=== PATIENT | male | born 1945 | race Caucasian/White ===

== ENCOUNTER 2016-07-12 09:24 | Inpatient (IN) | payer OTHER, BC ==
[~2016-07-12] VITALS: Ht 175.3 cm; Wt 84.0 kg
[~2016-07-12 09:24] MED LIST: ADVIL,NUPRIN,M200 MG PO; ALEVE220 MG PO; ASPIR 8181 M1 PO; EXTRA STRENGTH500 M1 PO; FERROUS SULFAT325 MG PO
[2016-07-12 10:21] VITALS: BP 165/97
[2016-07-12 17:23] VITALS: BP 172/85
[2016-07-12 19:46] VITALS: BP 187/92
[2016-07-12 23:39] VITALS: BP 139/79
[2016-07-12 23:43] LABS: TROP-I INTERPRETATION NEGATIVE; TROPONIN-I < 0.01 ng/mL (0.0-0.30)
[2016-07-13] VITALS (7 sets, daily range): BP systolic 121–185; BP diastolic 62–84
[2016-07-13 05:53] LABS: HEMATOCRIT 39.5 % (38.0-50.0); MCV 92.5 FL (86-99)
[2016-07-13 06:22] LABS: TROP-I INTERPRETATION NEGATIVE; TROPONIN-I < 0.01 ng/mL (0.0-0.30)
[2016-07-13 06:58] LABS: HDL CHOLESTEROL 35 MG/DL (Desirable>=40); LDL CHOLESTEROL 116 mg/dL (Desirable<100); NON-HDL CHOLESTEROL 134 mg/dL (Desirable<160); TOTAL CHOLESTEROL 169 mg/dL (Desirable<200); TRIGLYCERIDES 91 MG/DL (Normal: <150)
[2016-07-13 10:41] LABS: TROP-I INTERPRETATION NEGATIVE; TROPONIN-I < 0.01 ng/mL (0.0-0.30)
[2016-07-14 04:58] VITALS: BP 161/87
[2016-07-14 06:02] LABS: HEMATOCRIT 36.1 % (38.0-50.0); MCV 92.1 FL (86-99)
[2016-07-14] MEDS ORDERED: BENADRYL25 MG PO (10:09)
[2016-07-14] MEDS ORDERED: TYLENOL REGULA325 MG PO (10:10)
[2016-07-14] MEDS ORDERED: SENNA PLUS TAB1 EACH PO (10:10)
[2016-07-14] MEDS ORDERED: OXYCODONE HCL5 MG PO (10:11)
[2016-07-14] MEDS ORDERED: CARVEDILOL3.125 MG PO (10:11)
[2016-07-14] MEDS ORDERED: XARELTO10 MG PO (10:11)
[2016-07-14] MEDS ORDERED: CELECOXIB200 MG PO (10:11)
== END 2016-07-14 15:29 | DRG 468 ==
LOC: 2SOUTH 09:24 → 3EAST 09:24 → 2SOUTH 09:28 → 3EAST 16:44
PROVIDERS: Internal Medicine; Orthopaedic Surgery
DX: M17.12 Unilateral primary osteoarthritis, left knee (principal); I10 Essential (primary) hypertension; I25.10 Atherosclerotic heart disease of native coronary artery without angina pectoris; Z95.5 Presence of coronary angioplasty implant and graft; Z96.652 Presence of left artificial knee joint
CPT/HCPCS: 80061; 84484; 85014; 85018; 93005; C1713; J0690; J1885; J2250; J2795; J7050; L1820

== ENCOUNTER 2017-02-06 22:09 | Inpatient (IN) | payer OTHER, BC ==
[~2017-02-06] VITALS: Ht 172.7 cm; Wt 71.0 kg
[~2017-02-06 22:09] MED LIST changes: +BENADRYL25 MG PO; +CARVEDILOL3.125 MG PO; +CELECOXIB200 MG PO; +COREG3.125 M1 PO; +ENDOCET 5-3251 EACH PO; +IRON325 M1 PO; +OXYCODONE HCL5 MG PO; +SENNA PLUS TAB1 EACH PO; +TYLENOL EXTRA500 MG PO; +TYLENOL REGULA325 MG PO; +XARELTO10 MG PO
[2017-02-07] MEDS ORDERED: GLUCOSAMINE CH1 EAC2 PO (10:20)
[2017-02-07 10:22] VITALS: BP 167/80
[2017-02-07 16:32] VITALS: BP 149/81
[2017-02-07 18:47] VITALS: BP 141/90
[2017-02-07 21:19] VITALS: BP 153/86
[2017-02-07 23:33] VITALS: BP 166/87
[2017-02-08 04:23] VITALS: BP 95/49
[2017-02-08 05:16] LABS: HEMATOCRIT 37.5 % (38.0-50.0); MCV 94.7 FL (86-99)
[2017-02-08 05:41] LABS: ANION GAP 6 MEQ/L (2-14); CHLORIDE 104 MEQ/L (99-109); GFR ESTIMATE (CALCULATED) > 59 mL/min/; GLUCOSE 173 mg/dL (70-99); POTASSIUM 4.6 MEQ/L (3.7-5.4); SAMPLE HEMOLYSIS CHECK 0; SAMPLE ICTERIC CHECK 0; SAMPLE LIPEMIA CHECK 0; SODIUM 138 MEQ/L (136-147); UREA NITROGEN (BUN) 14 mg/dL (9-23)
[2017-02-08 08:00] VITALS: BP 143/85
[2017-02-08] MEDS ORDERED: OXYCODONE HCL5 MG PO (10:04)
[2017-02-08] MEDS ORDERED: CELECOXIB200 MG PO (10:04)
[2017-02-08] MEDS ORDERED: OXYCONTIN10 MG PO (10:04)
[2017-02-08] MEDS ORDERED: BISACODYL5 MG PO (10:04)
[2017-02-08] MEDS ORDERED: ELIQUIS2.5 MG PO (10:04)
[2017-02-08 15:58] VITALS: BP 116/58
== END 2017-02-08 17:51 | DRG 470 ==
LOC: ENRESERV 22:09 → 2SOUTH 02-07 09:21 → 3WEST 02-07 16:22
PROVIDERS: Orthopaedic Surgery
PROC: 0SRB04A Replacement of Left Hip Joint with Ceramic on Polyethylene Synthetic Substitute, Uncemented, Open Approach (ICD-10-PCS; principal; 2017-02-07)
DX: M16.12 Unilateral primary osteoarthritis, left hip (principal); Z96.652 Presence of left artificial knee joint; I25.10 Atherosclerotic heart disease of native coronary artery without angina pectoris; I10 Essential (primary) hypertension; I25.2 Old myocardial infarction; Z95.5 Presence of coronary angioplasty implant and graft; Z87.891 Personal history of nicotine dependence; Z79.82 Long term (current) use of aspirin; Z82.49 Family history of ischemic heart disease and other diseases of the circulatory system
CPT/HCPCS: 73501; 80048; 85014; 85018; J0131; J0690; J2250; J3010; J7050